=== PATIENT | male | born 1995 | race African-American/Black ===

== ENCOUNTER 2017-07-18 11:42 | Emergency (ER) | payer BC ==
[~2017-07-18] VITALS: Ht 182.9 cm; Wt 75.0 kg
[2017-07-18] MEDS ORDERED: ONDANSETRON HCL 4MG/2ML VIAL IV STA (11:55)
[2017-07-18] MEDS ORDERED: SODIUM CHLORIDE 0.9% 1,000 ML IV ONE (11:55)
[2017-07-18] MEDS ORDERED: KETOROLAC 30MG/ML VIAL IV STA (11:55)
[2017-07-18] MEDS ORDERED: MIDAZOLAM HCL 2 MG/2 ML VIAL IV ONE (12:00)
[2017-07-18] MEDS ORDERED: MORPHINE SULFATE 4 MG/ML CPJ (NOT FOR IM USE) IV ONE (12:00)
[2017-07-18] MEDS ORDERED: FENTANYL CITRATE/PF 50MCG/ML 2ML VIAL IV ONE (12:00)
[2017-07-18] MEDS ORDERED: PROPOFOL 200MG/20ML VIAL IV ONE (12:00)
[2017-07-18] MEDS ORDERED: KETAMINE HCL 50 MG/ML 10ML IV ONE (12:00)
[2017-07-18 17:08] VITALS: BP 121/65
== END 2017-07-18 17:18 | disposition home or self-care (01) ==
LOC: ER 12:30
DX: M24.411 Recurrent dislocation, right shoulder (principal)
CPT/HCPCS: 23650; 71045; 73030; 96361; 96374; 96375; 99152; 99285; J1885; J2250; J2270; J2405; J3010; J3490; J7030; Z7610; J2704; L3670